=== PATIENT | male | born 1955 | race Caucasian/White ===

== ENCOUNTER → 2017-06-17 19:33 | Outpatient (CLI) | payer MEDICARE ==
[2013-10-20 17:32] VITALS: BMI 37.8
[~2017-06-17 19:33] MED LIST: ALL DAY ALLERGY PO; ATARAX 25 MG TA25 MG PO; ATIVAN1 MG PO; DILAUDID2 MG PO; DOLOPHINE HCL10 MG PO; ELIQUIS2.5 MG PO; EPIPEN0.3 MG/0.3 IM; KEFLEX500 MG PO; OXYCODONE HCL5 MG PO; OXYCONTIN10 MG PO; PAROXETIN PO; PRILOSEC20 MG PO; PROSCAR5 MG PO; SAW PALMETTO450 MG PO; ZANTAC150 MG PO; [UNRECOGNIZED DRUG - OTHER] PO
[2017-08-17 15:25] VITALS: BMI 36.5
== END | disposition home or self-care (01) ==
LOC: D.LABREF 19:33
DX: M17.11 Unilateral primary osteoarthritis, right knee (principal)

== ENCOUNTER 2017-08-11 10:00 | Inpatient (IN) | payer MEDICARE ==
[~2017-08-11] VITALS: Ht 167.6 cm; Wt 102.7 kg
[~2017-08-11 10:00] MED LIST changes: -ATARAX 25 MG TA25 MG PO; -ELIQUIS2.5 MG PO; -KEFLEX500 MG PO; -OXYCODONE HCL5 MG PO; -OXYCONTIN10 MG PO
[2017-08-11 11:42] LABS: BASOPHILS 0.2 % (0-2); EOSINOPHILS 1.6 % (0-7); HEMOGLOBIN 15.4 g/dL (13.5-17.5); LYMPHOCYTES 28.7 % (15-50); MCH 31.9 pg (26.0-34.0); MCHC 34.2 g/dL (31.0-37.0); MCV 93.2 fL (80.0-100.0); MEAN PLATELET VOLUME 9.6 fL (7.4-10.4); MONOCYTES 8.7 % (2-11); NEUTROPHILS 60.8 % (40-80); PLATELET COUNT 189 10x3/uL (130-400); RBC 4.83 10x6/uL (4.20-6.10); RDW 12.4 % (11.5-14.5); WBC 6.2 10x3/uL (4.8-10.8)
[2017-08-11 11:52] LABS: CALC OSMOLALITY 276 mosm/kg (275-300); CALCIUM 8.6 mg/dL (8.5-10.1); CARBON DIOXIDE 29.6 mmol/L (21.0-32.0); CHLORIDE - SERUM 104 mmol/L (98-107); GLUCOSE 93 mg/dL (74-106); SODIUM 139 mmol/L (136-145); UREA NITROGEN 11 mg/dL (7-18); eGFR NON AFRICAN AMERICAN 80 mL/min (90-120)
[2017-08-11 11:58] LABS: APTT 30.7 SECONDS (22.8-39.4); INR 0.99 (0.85-1.17); PROTIME 12.7 SECONDS (11.6-15.0)
[2017-08-11 12:45] LABS: APPEARANCE CLEAR (CLEAR); BILIRUBIN NEGATIVE (NEGATIVE); COLOR YELLOW (YELLOW); GLUCOSE NEGATIVE (NEGATIVE); KETONE NEGATIVE (NEGATIVE); NITRITE NEGATIVE (NEGATIVE); PROTEIN NEGATIVE (NEGATIVE); UROBILINOGEN NORMAL (NORMAL)
[2017-08-17 06:56] VITALS: BP 117/76; BMI 36.7
[2017-08-17 12:49] VITALS: BP 117/87
--- NOTE | 2017-08-17 13:40 | NUR ---
ASSESSMENT PER FLOW SHEET.PT COMPLAINS OF PAIN TO RIGHT KNEE,4/10 SCALE.MEDS ORDERED PER OCT.FAMILY IN ROOM.CALL LIGHT IN REACH
--- NOTE | 2017-08-17 13:49 | NUR ---
RECIEVED TO ROOM 2231 FROM RECOVERY ROOM NO DISTRESS NOTED VOICES ALL NEEDS AWAKE AND ALERT TRIPLE BLOCK IN PLACE
--- NOTE | 2017-08-17 14:39 | OP ---
PATIENT NAME: ZOLTAN CA MEDICAL RECORD: [id number] :51 LOCATION:[id number] ADMISSION DATE:08/17/17 SURGEON: YAIR SOFIA DO DATE OF OPERATION: 08/17/2017 PROCEDURE PERFORMED: Right total knee arthroplasty. PREOPERATIVE DIAGNOSIS: Severe right knee osteoarthritis. POSTOPERATIVE DIAGNOSIS: Severe right knee osteoarthritis. INDICATIONS: Mr. Ca is a 61-year-old male that has been nursing along his right knee pain and osteoarthritis for some time. He has had injections, which have stopped working and he is tired of the knee pain affecting his activities of daily living and he would like something done surgically. We had a discussion in my office and he was scheduled for surgery today. Risks and benefits were included with that discussion. DESCRIPTION OF PROCEDURE: The patient was given a block in preoperative area, then taken to the operative suite, laid in supine position and given general anesthetic. The right lower extremity had a tourniquet placed above the knee. Right knee and lower extremity was prepped and draped in sterile fashion. Once this was done, a timeout was performed. Everyone was in agreement to the correct side, site, and patient. The right lower extremity incision was then marked out over the anterior knee and Ioban was placed over the skin that was exposed. Once this was done, Esmarch was used to exsanguinate the right lower extremity and the tourniquet was inflated to 350 mmHg and was up for 65 minutes total during the surgery. Once this was done, the incision began in the midline of the knee down to the knee capsule. A new blade was used to do a capsulotomy through the medial parapatellar approach. The patella was then everted and milled down for the patellar size of 34. Then, the femur was exposed. The distal femur was then cut after an intramedullary guide was used to cut the distal femur. After this was done, the tibia was then drawn to the tibia. Tibia was exposed and the tibia was resected. Once the tibia was resected, the knee was brought to extension and a lamina loader engineer was used with an [employer] to expose. The rest of the bone was taken out and the menisci were both taken out medially and laterally. As this was done, the extension block could not fit and more tibia was resected. Once sufficient tibia was resected, the knee was flexed up and the measurement for the femur was done, which was measured to be 67.5. The 4-in-1 block was then put into place and the femur was cut appropriately. After this was done, the trial was put into place and the tibial tray was put into place, seemed to need more tibia resected as it was not quite level and then more tibia was resected. He did appear to have quite a slope posteriorly on his tibia as this was due to the arthritis both medially and laterally. We then sized the tibia to be a 75. Tray was put into place and punched, after the rotation had been marked previously. The holes were drilled for the femur implant and the femur trial was taken off. Once the 75 tibial tray was put into place and punched and drilled, we then irrigated very thoroughly. The cement was mixed, cement was placed in the tibia and then onto the tibial tray and this was put into place. A mallet and impactor were used to put the tibial tray into place and the excess cement was removed with a freer. After this was done, the femur was put on and impacted and then a 12 poly was put into place. The knee was put into extension. The patella implant was put in with cement and the squeezer was used and excess cement was removed with a freer. After this was done, the tourniquet was let down and while the cement OPERATIVE REPORT [id number] ZOLTAN CA dried, irrigation was done very thoroughly. We then trialed after cement had dried. The tourniquet had been let down at 65 minutes and any bleeders were then coagulated with the plasma knife. Following this, we trialled and decided to use a deep-dish due to his posterior defects from prior and trialed up to a 14 deep-dish anterior stabilized implant. It seemed to fit very well and have good balance. Once this was completed, we put the E poly in, a 14 E poly and the tibial bar securing the tibial poly into place. This was put into place and then we thoroughly irrigated the knee again and the capsule was closed with #1 pops in a [id number] fashion. Then the Naida was placed over that and after being irrigated on the capsule and then the skin was closed with 2-0 Vicryl inverted interrupted fashion. ZipLine was placed over the knee. Adaptic, 4 x 4s, ABD, Webril and Adam wrap were placed over the knee and AGATA hose placed up to the knee. The patient was awakened and taken to recovery in stable condition. ESTIMATED BLOOD LOSS: 150 mL. COMPLICATIONS: None. TRANSINT:[id number] Voice Confirmation ID: [id number] DOCUMENT ID: [id number] YAIR SOFIA DO at 1439 CC: [id number] DICTATION DATE: 08/17/17 1138 COPS: 08/17/17 1211 ADM IN [facility] [address] [place] [address]
[2017-08-17 15:25] VITALS: BP 117/87; Ht 167.6 cm; Wt 102.7 kg
[2017-08-17 20:00] VITALS: BP 107/65
[2017-08-18] VITALS: BP 111/61
--- NOTE | 2017-08-18 03:26 | NUR ---
REC'D. IN BED.FAMILY AT BEDSIDE,LONG LEG ACEWRAP DRSG. INTACT TO RIGHT LEG IN CPM. STATES FEELS GOOD ON. HELPS LEG TO RELAX.NEUROVASCULAR STATUS WITH IN NORMAL LIMITS. GOOD PEDAL PULSE.BLOCK EFFECTIVE. WILL CONTINUE TO MONITOR FOR ANY CHGES. AND FOLLOW CURRENT PLAN OF CAR.
[2017-08-18 04:00] VITALS: BP 106/67
[2017-08-18 05:55] LABS: BASOPHILS 0 % (0-2); EOSINOPHILS 0 % (0-7); HEMATOCRIT 38.2 % (42.0-54.0); HEMOGLOBIN 12.9 g/dL (13.5-17.5); IMMATURE GRANULOCYTES 0.3 % (0-5); LYMPHOCYTES 11.4 % (15-50); MCH 31.2 pg (26.0-34.0); MCHC 33.8 g/dL (31.0-37.0); MCV 92.5 fL (80.0-100.0); MEAN PLATELET VOLUME 9.9 fL (7.4-10.4); MONOCYTES 9.7 % (2-11); NEUTROPHILS 78.6 % (40-80); PLATELET COUNT 179 10x3/uL (130-400); RBC 4.13 10x6/uL (4.20-6.10); RDW 12.4 % (11.5-14.5); WBC 11.6 10x3/uL (4.8-10.8)
[2017-08-18 06:21] LABS: ALKALINE PHOSPHATASE 43 U/L (46-116); ALT (SGPT) 31 U/L (10-68); BILIRUBIN - TOTAL 0.47 mg/dL (0.2-1.3); CALC OSMOLALITY 277 mosm/kg (275-300); CALCIUM 8.2 mg/dL (8.5-10.1); CARBON DIOXIDE 28.4 mmol/L (21.0-32.0); CHLORIDE - SERUM 104 mmol/L (98-107); GLUCOSE 130 mg/dL (74-106); POTASSIUM - SERUM 3.8 mmol/L (3.5-5.1); PROTEIN - SERUM 5.9 g/dL (6.4-8.2); SODIUM 138 mmol/L (136-145); UREA NITROGEN 12 mg/dL (7-18); eGFR NON AFRICAN AMERICAN 80 mL/min (90-120)
[2017-08-18 08:49] VITALS: BP 119/69
[2017-08-18 12:33] VITALS: BP 132/77
[2017-08-18 16:47] VITALS: BP 131/70
[2017-08-18 20:00] VITALS: BP 133/82
[2017-08-19] VITALS: BP 124/81
--- NOTE | 2017-08-19 06:33 | NUR ---
EYES CLOSED RESPIRATIONS WITH EASE AND UNLABORED.
[2017-08-19 06:52] VITALS: BP 111/74
[2017-08-19 08:11] LABS: BASOPHILS 0.1 % (0-2); EOSINOPHILS 0.6 % (0-7); HEMATOCRIT 40.2 % (42.0-54.0); HEMOGLOBIN 13.7 g/dL (13.5-17.5); IMMATURE GRANULOCYTES 0.2 % (0-5); LYMPHOCYTES 14.6 % (15-50); MCH 31.6 pg (26.0-34.0); MCHC 34.1 g/dL (31.0-37.0); MCV 92.6 fL (80.0-100.0); MEAN PLATELET VOLUME 9.5 fL (7.4-10.4); MONOCYTES 11.7 % (2-11); NEUTROPHILS 72.8 % (40-80); PLATELET COUNT 158 10x3/uL (130-400); RBC 4.34 10x6/uL (4.20-6.10); RDW 12.5 % (11.5-14.5); WBC 9.9 10x3/uL (4.8-10.8)
[2017-08-19 08:35] LABS: ALBUMIN 3.2 g/dL (3.4-5.0); ANION GAP 11.7 mmol/L (8-16); BILIRUBIN - TOTAL 1.05 mg/dL (0.2-1.3); CALCIUM 8.5 mg/dL (8.5-10.1); CARBON DIOXIDE 27.9 mmol/L (21.0-32.0); CREATININE - SERUM 1.1 mg/dL (0.6-1.3); POTASSIUM - SERUM 3.6 mmol/L (3.5-5.1); PROTEIN - SERUM 6.6 g/dL (6.4-8.2)
--- NOTE | 2017-08-19 08:45 | NUR ---
PATIENT IN BED WITH IV ITNACT. STATES HE IS IN PAIN BUT SEEMS BETTER THAN YESTERDAY. EXPLAINED TO PATIENT THAT HE NEEDS TO TRY TO GET UP AND DO PT TODAY. VERBALIZED UNDERSTANDING. REFUSED CPM THIS AM. WILL CONTINUE TO MONITOR. CALL LIGHT WITHIN REACH.
[2017-08-19 09:45] VITALS: BP 124/80
[2017-08-19 12:08] VITALS: BP 143/88
--- NOTE | 2017-08-19 12:30 | NUR ---
PATIENT SITTING UP IN BED. IV INTACT. STATES HE STILL IS IN PAIN. PAIN MEDS GIVEN. CALL LIGHT WITHIN REACH.
[2017-08-19 16:41] VITALS: BP 140/85
--- NOTE | 2017-08-19 18:45 | NUR ---
PATIENT REFUSED CPM AT THIS TIME. CALL LIGHT WITHIN REACH. FAMILY AT BEDSIDE. CALL LIGHT WITHIN REACH.
--- NOTE | 2017-08-19 19:00 | NUR ---
REPORT RECEIVED AND CARE OF PT ASSUMED. PT SITTING UP ON SIDE OF BED...C/O WANTING PAIN MEDICATION SOON HE CAN HAVE MORE. DRESSING ON RIGHT KNEE CLEAN AND DRY. PEDAL PULSE PALPATED ON RIGHT FOOT. WILL MONITOR CLOSLEY FOR NEEDS. IS AT BEDSIDE.
--- NOTE | 2017-08-19 19:25 | NUR ---
GAVE OXY IR 10 MG PER PRN ORDER, PER REQUEST FOR PAIN IN RIGHT KNEE AT LEVEL 9/10. WILL MONITOR FOR EFFECTIVENESS.
[2017-08-19 20:00] VITALS: BP 134/79
--- NOTE | 2017-08-19 20:53 | NUR ---
HS MEDICATIONS GIVEN TO INCLUDE TYLENOL 1000 MV IVP AND ULTRAM PO PER REQUEST FOR PAIN AT LEVEL 8/10. ALSO GAVE BENADRYL FOR ITCHING AND TO ASSIST IN SLEEP. WILL MONITOR FOR EFFECTIVENESS.
--- NOTE | 2017-08-19 23:14 | NUR ---
GAVE OXY IR 10 MG AND OXYCONTIN EXTENDED RELEASE PO PER PT REQUEST FOR SEVERE PAIN IN RIGHT KNEE. WILL MONITOR FOR EFFECTIVENESS. IS AT BEDSIDE.
[2017-08-20] VITALS: BP 130/83
--- NOTE | 2017-08-20 02:26 | NUR ---
PT UP AMBULATING IN THE HALLWAY WITH WALKER. AMBULATED APPROX 50 FEET.
[2017-08-20 04:00] VITALS: BP 136/70
[2017-08-20 06:47] LABS: BASOPHILS 0.1 % (0-2); EOSINOPHILS 1.2 % (0-7); HEMATOCRIT 41.7 % (42.0-54.0); HEMOGLOBIN 14.1 g/dL (13.5-17.5); IMMATURE GRANULOCYTES 0.3 % (0-5); LYMPHOCYTES 23.4 % (15-50); MCH 31.6 pg (26.0-34.0); MCHC 33.8 g/dL (31.0-37.0); MCV 93.5 fL (80.0-100.0); MONOCYTES 11.5 % (2-11); NEUTROPHILS 63.5 % (40-80); PLATELET COUNT 189 10x3/uL (130-400); RBC 4.46 10x6/uL (4.20-6.10); RDW 12.5 % (11.5-14.5); WBC 9.5 10x3/uL (4.8-10.8)
[2017-08-20 07:13] LABS: ALBUMIN 3.2 g/dL (3.4-5.0); ANION GAP 11.4 mmol/L (8-16); BILIRUBIN - TOTAL 0.8 mg/dL (0.2-1.3); CREATININE - SERUM 1.2 mg/dL (0.6-1.3); POTASSIUM - SERUM 3.4 mmol/L (3.5-5.1); PROTEIN - SERUM 7.2 g/dL (6.4-8.2)
--- NOTE | 2017-08-20 08:00 | NUR ---
ASSESSMENT PER FLOW SHEET.PT WITHOUT DISTRESS.DENIES NEEDS.CALL LIGHT IN REACH
[2017-08-20 08:38] VITALS: BP 134/91
[2017-08-20] MEDS ORDERED: ATARAX 25 MG TA25 MG PO (09:56)
[2017-08-20] MEDS ORDERED: OXYCODONE HCL5 MG PO (09:56)
[2017-08-20] MEDS ORDERED: ELIQUIS2.5 MG PO (09:56)
[2017-08-20] MEDS ORDERED: OXYCONTIN10 MG PO (09:57)
[2017-08-20] MEDS ORDERED: KEFLEX500 MG PO (09:57)
--- NOTE | 2017-08-20 10:16 | NUR ---
Patient Name: ZOLTAN ANTUNEZ Admission Status: Elective Accout number: [id number] Admission Date: 08-17-2017 : 1955 Admission Diagnosis:UNILATERAL PRIMARY OSTEOARTHRITIS, RIGHT KNEE Attending: YAIR SOFIA Current LOS: 3 Anticipated DC Date: Planned Disposition: Home Primary Insurance: MEDICARE A & B Discharge Planning Comments: CM MET WITH PATIENT TO ASSESS DSICHARGE PLANNING NEEDS. PATIENT LIVES INDEPENDENTLY WITH HIS (ALEJANDRA) WHO WILL BE THE ONE TO DRIVE HIM HOME TODAY. PATIENT HAS A WALKER, BEDSIDE COMMODE, CPM AT HOME DELIVERED BY [employer]. PATIENT WILL HAVE OP PT AT [facility] ([phone]) APPOINTMENT SET UP FOR WednesdayJul AT 10:45. COPY OF APPOINTMENT GIVEN TO PATIENT. CM WILL CONTINUE TO HELP WITH DISCHARGE PLANNING NEEDS. [facility]; [facility] ALEJANDRA ()[phone] Head Of Strategy: Myriam Leslie * Is the patient Alert and Oriented? Yes 0 * How many steps to enter\exit or inside your home? 2 0 * PCP [facility] 0 * [facility] 0 * Preadmission Environment Home with Family 0 * ADLs Independent 0 * Equipment Bedside Commode Rolling Walker Shower Chair 0 * List name and contact numbers for known caregivers / representatives who currently or will assist patient after discharge: ALEJANDRA () [phone] 0 * Community resources currently utilized None 0 * Additional services required to return to the preadmission environment? Yes 0 * Can the patient safely return to the preadmission environment? Yes 0 * Has this patient been hospitalized within the prior 30 days at any hospital? No 0 Grand Total: 0
--- NOTE | 2017-08-20 11:06 | NUR ---
[facility][id number] CALLED TO [facility]. SPOKE WITH GUILHERME MARIA/PHARMACIST
[2017-08-20 12:09] VITALS: BP 136/88
--- NOTE | 2017-08-20 14:34 | NUR ---
DISCHARGE INSTRUCTIONS,STATES UNDERSTANDING.IV DCD WITH CATH TIP INTACT.
--- NOTE | 2017-08-20 14:41 | NUR ---
LEFT UNIT VIA WHEELCHAIR FOR TRANSPORT HOME.
== END 2017-08-20 14:40 | disposition home or self-care (01) | DRG 470 ==
LOC: D.SDCHOLD 10:00 → D.MS 08-17 06:15 → D.SDCHOLD 08-17 07:30 → D.MS 08-17 12:03
PROVIDERS: Emergency Medicine; ADMIT Orthopaedic Surgery
PROC: 0SRC0J9 Replacement of Right Knee Joint with Synthetic Substitute, Cemented, Open Approach (ICD-10-PCS; principal; 2017-08-17 08:15)
DX: M17.11 Unilateral primary osteoarthritis, right knee (principal); G47.33 Obstructive sleep apnea (adult) (pediatric); Z87.891 Personal history of nicotine dependence; F32.9 Major depressive disorder, single episode, unspecified; M71.21 Synovial cyst of popliteal space [Baker], right knee

== ENCOUNTER → 2021-01-09 09:50 | Outpatient (CLI) | payer MEDICARE ==
[2017-08-17 15:25] VITALS: BMI 36.5
[~2021-01-09 09:50] MED LIST changes: +ATARAX 25 MG TA25 MG PO; +ELIQUIS2.5 MG PO; +KEFLEX500 MG PO; +OXYCODONE HCL5 MG PO; +OXYCONTIN10 MG PO
== END | disposition home or self-care (01) ==
LOC: D.LAB 09:50
PROVIDERS: ATTEND Family Medicine
DX: Z11.52 Encounter for screening for COVID-19 (principal)

== ENCOUNTER → 2021-01-14 08:05 | Outpatient (CLI) | payer MEDICARE ==
[2017-08-17 15:25] VITALS: BMI 36.5
== END | disposition home or self-care (01) ==
LOC: D.RT 08:05
PROVIDERS: ATTEND Family Medicine
DX: R05 Cough (principal)